=== PATIENT | female | born 1960 | race Caucasian/White ===

== ENCOUNTER → 2023-08-08 09:07 | Outpatient (REF) | payer OTHER, SELFPAY | LOC: RAD 09:07 | PROVIDERS: ATTENDING PHYSICIAN Obstetrics & Gynecology Gynecology; FAMILY PHYSICIAN Family Medicine | DX: Z78.0 Asymptomatic menopausal state (principal) | CPT/HCPCS: 77080 ==

== ENCOUNTER → 2023-08-13 13:58 | Outpatient (REF) | payer OTHER, SELFPAY | LOC: WDC 13:58 | PROVIDERS: ATTENDING PHYSICIAN Obstetrics & Gynecology Gynecology; FAMILY PHYSICIAN Family Medicine | DX: Z12.31 Encounter for screening mammogram for malignant neoplasm of breast (principal); R07.9 Chest pain, unspecified | CPT/HCPCS: 71046; 77063; 77067 ==

== ENCOUNTER → 2023-09-23 13:37 | Outpatient (REF) | payer MEDICARE, SELFPAY | LOC: RAD 13:37 | PROVIDERS: ATTENDING PHYSICIAN Family Medicine | DX: J13 Pneumonia due to Streptococcus pneumoniae (principal) | CPT/HCPCS: 71046 ==

== ENCOUNTER → 2024-03-26 17:48 | Outpatient (REF) | payer MEDICARE, SELFPAY | LOC: RAD 17:48 | PROVIDERS: ATTENDING PHYSICIAN Physician Assistant Medical; FAMILY PHYSICIAN Family Medicine | DX: R05.9 Cough, unspecified (principal) | CPT/HCPCS: 71046 ==

== ENCOUNTER → 2024-04-10 07:50 | Outpatient (REF) | payer MEDICARE, SELFPAY | LOC: HWRAD 07:50 | PROVIDERS: ATTENDING PHYSICIAN Family Medicine | DX: J13 Pneumonia due to Streptococcus pneumoniae (principal) | CPT/HCPCS: 71046 ==

== ENCOUNTER → 2024-09-25 12:29 | Outpatient (REF) | payer MEDICARE, SELFPAY | LOC: WDC 12:29 | PROVIDERS: ATTENDING PHYSICIAN Family Medicine | DX: Z12.31 Encounter for screening mammogram for malignant neoplasm of breast (principal) | CPT/HCPCS: 77063; 77067 ==